=== PATIENT | male | born 1995 | race Two or more races ===

== ENCOUNTER 2025-06-20 01:53 | Emergency (ER) | payer BC, OTHER ==
[~2025-06-20] VITALS: Ht 167.6 cm; Wt 78.9 kg
--- NOTE | 2025-06-20 02:24 | ED.PDOC ---
General HPI Comments 30-YEAR-OLD MALE PRESENTS TO THE ED C/O CONSTANT, SHARP/ACHING, RIGHT ABDOMINAL PAIN FOR 2 HOURS. PATIENT HAS HAD SOME NAUSEA, STATES HE FEELS LIKE HE NEEDS TO URINATE/HAVE BM BUT CANNOT. C/O RIGHT TESTICLE PAIN. DENIES VOMITING, DIFFICULTY BREATHING, CHEST PAIN, SHORTNESS OF BREATH, DIARRHEA, FEVER, CHILLS, RECENT TRAVEL OR KNOWN ILL CONTACTS. Chief Complaint: Abdominal Pain Time Seen by MD: 02:20 Reviewed notes: Nurses Notes, Medications, Allergies Allergies: Coded Allergies: Codeine (Verified Allergy, Unknown, 06/20/25) Home Meds Active Scripts Tamsulosin Hcl (Flomax) 0.4 Mg Cap, 1 CAP PO DAILY, #30 CAP Prov:SCOTTY VAZQUEZ 06/20/25 Ibuprofen (Ibuprofen) 800 Mg Tab, 1 TAB PO TID, #30 TAB Prov:SCOTTY VAZQUEZ 06/20/25 Information Source: Patient Mode of Arrival: Ambulatory Severity: Moderate Timing: Days Duration: Since onset, Days Prehospital treatment: None Onset: Spontaneous Symptoms: Frequency Location: Abdomen associated signs and symptoms: Abdominal Pain, Frequency, Urgency Past Medical History PAST MEDICAL HISTORY: Denies Surgical History: Denies all surgeries Family History Family History: Reviewed,noncontributory to illness, No family hx of Cancer, No family hx of DM, No family hx of Heart maliah, No family hx of HTN, No family hx ofKidney maliha, No family hx of Liver maliha, No family hx of Lung maliha, No family hx of Stroke Social History Smoker: Non-Smoker Alcohol: Denies ETOH Use Drugs: Denies Drug Use Lives In: Home Constitutional: denies: chills, diaphoresis, fatigue, fever, malaise, sweats, weakness, others EENTM: denies: blurred vision, double vision, ear bleeding, ear discharge, ear drainage, ear pain, ear ringing, eye pain, eye redness, hearing loss, mouth pain, mouth swelling, nasal discharge, nose bleeding, nose congestion, nose pain, photophobia, tearing, throat pain, throat swelling, voice changes, others Respiratory: denies: cough, hemoptysis, orthopnea, SOB at rest, shortness of breath, SOB with excertion, stridor, wheezing, others Cardiovascular: denies: chest pain, dizzy spells, diaphoresis, Dyspnea on exertion, edema, irregular heart beat, left arm pain, lightheadedness, palpitations, PND, syncope, others Gastrointestinal: reports: abdominal pain, nausea; denies: abdomen distended, blood streaked bowels, constipated, diarrhea, dysphagia, difficulty swallowing, hematemesis, melena, poor appetite, poor fluid intake, rectal bleeding, rectal pain, vomiting, others Genitourinary: denies: burning, dysuria, flank pain, frequency, hematuria, incontinence, penile discharge, penile sore, pain, testicle pain, testicle swelling, urgency, others Neurological: denies: dizziness, fainting, headache, left sided numbness, left sided weakness, numbness, paresthesia, pre-existing deficit, right sided numbness, right sided weakness, seizure, speech problems, tingling, tremors, weakness, others Musculoskeletal: denies: back pain, gout, joint pain, joint swelling, muscle pain, muscle stiffness, neck pain, others Integumetry: denies: bruises, change in color, change in hair/nails, dryness, laceration, lesions, lumps, rash, wounds, others Allergic/Immunocompromised: denies: Difficulty Healing, Frequent Infections, Hives, Itching, others Hematologic/Lymphatic: denies: anemia, blood clots, easy bleeding, easy bruising, swollen glands, others Endocrine: denies: excessive hunger, excessive sweating, excessive thirst, excessive urination, flushing, intolerance to cold, intolerance to heat, unexplained weight gain, unexplained weight loss, others Psychiatric: denies: anxiety, bipolar disorder, depression, hopeless, panic disorder, schizophrenia, sleepless, suicidal, others All Other Systems: Reviewed and Negative (PER HPI ) Physical Exam General Appearance: No Apparent Distress, Normal HEENT: Normal ENT Inspection, PERRL/EOMI, Pharynx Normal, TMs Normal Neck: Full Range of Motion, Non-Tender, Normal, Normal Inspection Respiratory: Chest Non-Tender, Lungs Clear, No Accessory Muscle Use, No Respiratory Distress, Normal Breath Sounds Cardiovascular: No Edema, No JVD, No Murmur, No Gallop, Normal Peripheral Pulses, Regular Rate/Rhythm Breast Exam: Deferred Gastrointestinal: No Organomegaly, No Pulsatile Mass, Normal Bowel Sounds, RLQ, Soft, Tenderness (RIGHT LOWER ABD, NO GUARDING AND REBOUND TENDERNESS. ) Genitalia: Deferred Pelvic: Deferred Rectal: Deferred Extremities: No calf tenderness, Normal capillary refill, Normal inspection, Normal range of motion, Non-tender, No pedal edema Musculoskeletal : Apperance: Normal Neurologic: Alert, dry sander II-XII nml as Tested, No Motor Deficits, Normal Affect, Normal Mood, No Sensory Deficits Cerebellar Function: Normal Reflexes: Normal Skin: Dry, Normal Color, Warm Peripheral Pulses: 2+ carotid (R), 2+ carotid (L) Lymphatic: No Adenopathy Was a procedure done? Was a procedure done?: No Differential Diagnosis Kidney stone (Female): Musculoskeletal pain, Pyelonephritis, Renal failure, Strain, Urinary obstruction, Urolithiasis Urinary Problem (Male): Bladder Outlet, Prostatitis, Urolithiasis, UTI X-Ray, Labs, Meds, VS Vital Signs Date Time Temp Pulse Resp B/P (MAP) Pulse Ox O2 Delivery O2 Flow Rate FiO2 06/20/25 09:29 86 16 97 Room Air* 0 21 06/20/25 09:23 98.1 86 16 157/99 (118) 97 98.1 06/20/25 05:54 98.5 74 16 162/100 (120) 99 98.5 06/20/25 02:20 Room Air 06/20/25 01:53 98.3 68 18 158/96 97 98.3 Lab Test 06/20/25 05:35 06/20/25 02:37 Range/Units Urine Color Yellow Yellow Urine Clarity Turbid H Clear Urine pH 5.0 5.0-9.0 Urine Specific Hunter 1.019 1.001-1.035 Urine Protein 1+ H Negative Urine Ketones Trace Negative Urine Blood 3+ H Negative /uL Urine Nitrite Negative Negative Urine Bilirubin Negative Negative Urine Urobilinogen Normal Negative mg/dL Urine Leukocyte Esterase Negative Negative /uL Urine RBC 371 0 - 3 /hpf Urine Microscopic WBC 2 0-3 /HPF Urine Squamous Epithelial Cells Few <5 /hpf Urine Bacteria None seen None Seen /hpf Urine Hyaline Casts Few 0 - 2 /lpf Urine Mucus Few None Seen Urine Glucose Normal Normal mg/dL White Blood Count 16.2 H 4.4-10.8 10^3/uL Red Blood Count 5.21 4.5-5.90 10^6/uL Hemoglobin 16.6 13.5-17.5 g/dL Hematocrit 47.1 41.0-53.0 % Mean Corpuscular Volume 90.4 80.0-100.0 fL Mean Corpuscular Hemoglobin 31.8 28.0-32.0 pg Mean Corpuscular Hemoglobin Concent 35.2 32.0-36.0 g/dL Red Cell Distribution Width 12.9 11.8-14.3 % Platelet Count 254 140-450 10^3/uL Mean Platelet Volume 9.4 6.9-10.8 fL Neutrophils (%) (Auto) 87.5 H 37.0-80.0 % Lymphocytes (%) (Auto) 8.5 L 10.0-50.0 % Monocytes (%) (Auto) 3.7 0.0-12.0 % Eosinophils (%) (Auto) 0.1 0.0-7.0 % Basophils (%) (Auto) 0.2 0.0-2.0 % Neutrophils # (Auto) 14.2 H 1.6-8.6 10 ^3/uL Lymphocytes # (Auto) 1.4 0.4-5.4 10 ^3/uL Monocytes # (Auto) 0.6 0-1.3 10 ^3/uL Eosinophils # (Auto) 0 0-0.8 10 ^3/uL Basophils # (Auto) 0 0-0.2 10 ^3/uL Nucleated Red Blood Cells 0.0 % Sodium Level 140 136-145 mmol/L Potassium Level 3.4 L 3.5-5.1 mmol/L Chloride Level 104 98-107 mmol/L Carbon Dioxide Level 24 20-31 mmol/L Anion Gap 12 5-15 Blood Urea Nitrogen 9 9-23 mg/dL Creatinine 1.26 0.700-1.30 mg/dL Glomerular Filtration Rate Calc 78 >90 mL/min BUN/Creatinine Ratio 7.1 L 10.0-20.0 Serum Glucose 155 H 74-106 mg/dL Calcium Level 9.6 8.7-10.4 mg/dL Total Bilirubin 0.7 0.2-1.0 mg/dL Aspartate Amino Transferase (AST) 45 H 13-40 U/L Alanine Aminotransferase (ALT) 112 H 7-40 U/L Alkaline Phosphatase 86 46-116 U/L Total Protein 7.8 5.7-8.2 g/dL Albumin 5.1 H 3.2-4.8 g/dL Current Medications Medications (Trade) Dose Ordered Sig/Yasir Route Start Time Stop Time Status Last Admin Ketorolac Tromethamine (Toradol Injection) 30 mg ONCE ONCE IV 06/20/25 02:30 06/20/25 02:31 DC 06/20/25 08:53 Tamsulosin HCl (Flomax) 0.4 mg ONCE ONCE PO 06/20/25 04:15 06/20/25 04:16 DC 06/20/25 08:52 Sodium Chloride 1,000 ml @ 1,000 mls/hr Q1H ONCE IV 06/20/25 08:30 06/20/25 09:29 DC 06/20/25 08:53 PATIENT: ELMA WINNACCT: [id number]: [id number] : 1995 LOC: ER ROOM / BED: / AGE / SEX: 30 / M ADM STATUS: REG ER SERVICE 0220 ORDERING PHYSICIAN: OLIVER LANDAVERDE PROCEDURE(s): ABPL - CT AB PEL WO CON-NO ORAL OR IV REASON: right flank pain ORDER NUMBER(s): [id number], ACCESSION NUMBER(s): [id number] Exam: CT CT AB PEL WO CON-NO ORAL OR IV History: right flank pain Comparison Study: None TECHNIQUE: Multidetector CT of the abdomen was performed from lung bases to pubic symphysis. Imaging was performed without IV contrast. Axial, coronal and sagittal multiplanar reformats were obtained from the axial data set by the technologist. Radiation Dose Information: Dose-length product is 509.57 mGy*cm FINDINGS: Limited sections of the lung bases demonstrate no focal pulmonary mass. The liver, spleen, pancreas, and both adrenal glands demonstrate no acute findings. Extensive hepatic steatosis. The gallbladder is unremarkable. The stomach is unremarkable. The small bowel loops are not dilated. The appendix is normal. No colonic obstruction. 3 mm obstructive stone at the right UVJ with associated [id number] hydroureteronephrosis. Left collection system is unremarkable. The urinary bladder is not distended. No significant lymphadenopathy. No free air or free fluid. The aorta and IVC demonstrate no acute findings. Visualized osseous structures demonstrate no acute abnormality. IMPRESSION: 1. 3 mm obstructive stone at the right UVJ with associated [id number] hydroureteronephrosis. ATED BY: MAGDA CRANE MD DICTATED DATE/TIME: 06/20/25406 SIGNED BY: MAGDA CRANE MD SIGNED DATE/TIME: 06/20/25406 CC: X-Ray, Labs, Meds, VS Comment CT ABDOMEN AND PELVIS IMPRESSION: 1. 3 mm obstructive stone at the right UVJ with associated [id number] hydroureteronephrosis. PATIENT CONTINUES WITH MODERATE PAIN. NOTED OBSTRUCTIVE RENAL STONE WITH hydroureteronephrosis. WHITE COUNT [id number]. ORDERED ROCEPHIN 1 G IV PIGGYBACK AND TAMSULOSIN 0.4 MG P.O.. PLACED ORDERS FOR ADMISSION POSSIBLY TRANSFER [facility] Spoke with Dr. Ramos with [place] case [phone]. Dr. Ramos stated she will call back once patient's urine is resulted to finalize transfer. PATIENT WAS TRANSFERRED TO [facility] AT 0600, UPON WAITING UA RESULTS. EXTERNAL MEDICAL RECORDS REVIEWED: [NONE] INDEPENDENT HISTORIANS: [NONE] SOCIAL DETERMINANTS OF HEALTH: [NONE] LABS ORDERED: SEE ABOVE REVIEWED AND INTERPRETED RESULTS: NONE IMAGING ORDERED: NONE TREATMENTS ORDERED: 0.9 NORMAL SALINE 1 L, FLOMAX 0.4 IVP. AFTER TREATMENT, PT STATES HE DOES NOT HAVE PAIN AT THIS TIME. PROCEDURES PERFORMED: NONE CRITICAL CARE TIME: NONE I HAVE DISCUSSED THE PATIENT WITH THE ATTENDING PHYSICIAN, DR. SWEET, AND HE AGREES WITH THE PATIENT'S PLAN OF CARE AND DISPOSITION. PATIENTS URINALYSIS SHOWS NO INFECTION AT THIS TIME. AT 0957, PATIENT REPORTS PAIN IS A 3/10 AT THIS TIME. UPON CONSULTATION WITH DR. CHAPIN FROM [facility]. , PATIENT DOES NOT NEED TO TRANSFER TO [facility] BECAUSE PT DOES NOT HAVE PAIN AFTER TREATMENT. DR. CHAPIN WILL REFER THE PATIENT TO A UROLOGIST FOR [facility] AND WILL CALL PT IN 2 DAYS. BASED ON HISTORY OF PRESENT ILLNESS, AND PHYSICAL EXAM, PATIENT WILL BE DISCHARGED HOME. DISCUSSED PLAN FOR DISCHARGE HOME WITH RX IBUPROFEN AND FLOMAX. MEDICATION WARNINGS GIVEN. SHARED DECISION MAKING: DISCUSSED WITH PATIENT THAT THEIR WORKUP WAS NORMAL. PATIENT INSTRUCTED TO FOLLOW UP WITH PRIMARY CARE PROVIDER IN 1-2 DAYS FOR RE- EVALUATION OF SYMPTOMS. PATIENT VERBALIZES UNDERSTANDING TO RETURN TO ED FOR NEW OR WORSENING SYMPTOMS OR IF FOLLOW UP WITH PCP CANNOT BE OBTAINED. PATIENT FEELS COMFORTABLE GOING HOME AT THIS TIME. ALL QUESTIONS ADDRESSED AT TIME OF DISCHARGE. Time of 1ST Reevaluation: 02:24 Reevaluation 1ST: Unchanged Time of 2ND Reevaluation: 06:07 Reevaluation 2ND: Unchanged Time of 3RD Reevaluation: 10:44 Reevaluation 3RD: Improved Patient Education/Counseling: Diagnosis, Treatment, Prognosis, Need For Follow Up Family Education/Counseling: Diagnosis, Treatment, No Family Present Medical Screening: No EMC Exist At This Time SEPSIS Sepsis Screen Date sepsis recognized/suspect: Jun 20, 2025 Time Sepsis recognized/suspect: 015 Recent Procedure: No On Antibiotic Therapy: No Respiratory Rate >20: No Heart Rate >90: No Temp<36 C (96.8 F) or >38.3 C: No SBP <90 or MAP <65 mmHG: No New Acute Mental Status Change: No Is the patient on CPAP, BIPAP,: No Physician Orders Heplock Iv (06/20/25 ) Ct Ab Pel Wo Con-No Oral Or Iv (06/20/25 02:20) Vital Signs Date Time Temp Pulse Resp B/P (MAP) Pulse Ox O2 Delivery O2 Flow Rate FiO2 06/20/25 09:29 86 16 97 Room Air* 0 21 06/20/25 09:23 98.1 86 16 157/99 (118) 97 98.1 06/20/25 05:54 98.5 74 16 162/100 (120) 99 98.5 06/20/25 02:20 Room Air 06/20/25 01:53 98.3 68 18 158/96 97 98.3 Laboratory Tests Test 06/20/25 02:37 White Blood Count 16.2 10^3/uL (4.4-10.8) H Medications Medications Dose Ordered Sig/Yasir Route Start Time Stop Time Status Last Admin Dose Admin Ketorolac Tromethamine 30 mg ONCE ONCE IV 06/20/25 02:30 06/20/25 02:31 DC 06/20/25 08:53 Sodium Chloride 1,000 ml @ 1,000 mls/hr Q1H ONCE IV 06/20/25 08:30 06/20/25 09:29 DC 06/20/25 08:53 Tamsulosin HCl 0.4 mg ONCE ONCE PO 06/20/25 04:15 06/20/25 04:16 DC 06/20/25 08:52 Departure 1 Departure Time of Disposition: 10:44 Impression: Primary Impression: Hydronephrosis with renal calculous obstruction Additional Impression: Leukocytosis Qualified Codes: D72.829 - Elevated white blood cell count, unspecified Disposition: HOME / SELF CARE / HOMELESS Condition: Stable Additional Instructions: FOLLOW-UP WITH PCP IN 1 TO 2 DAYS. TAKE MEDICATIONS PRESCRIBED. RETURN TO ED FOR ANY NEW OR WORSENING SYMPTOMS. e-Prescriptions Tamsulosin Hcl (Flomax) 0.4 Mg Cap 1 CAP PO DAILY, #30 CAP Prov: SCOTTY VAZQUEZ 06/20/25 Ibuprofen (Ibuprofen) 800 Mg Tab 1 TAB PO TID, #30 TAB Prov: SCOTTY VAZQUEZ 06/20/25 Discharged With: Self Critical Care Note Critical Care Time?: No Stability Stability form required: No Heart Score Heart Score: Heart Score Response (Comments) Value History N/A 0 EKG N/A 0 Age N/A 0 Risk Factors N/A 0 Troponin N/A 0 Total 0 I personally scribed for SCOTTY VAZQUEZ ([email or web address]) on 06/20/25 at 10:02. Electronically submitted by Gertrude Elmore ([employer]). I personally scribed for SCOTTY VAZQUEZ ([email or web address]) on 06/20/25 at 10:05. Electronically submitted by Gertrude Elmore ([employer]). OLIVER LANDAVERDE Jun 20, 2025 02:24 SCOTTY VAZQUEZ Jun 20, 2025 10:02
[2025-06-20 03:08] LABS: Hematocrit 47.1 % (41.0-53.0); Hemoglobin 16.6 g/dL (13.5-17.5); Mean Corpuscular Hemoglobin 31.8 pg (28.0-32.0); Mean Corpuscular Volume 90.4 fL (80.0-100.0); Nucleated Red Blood Cells % 0.0 %
[2025-06-20 03:24] LABS: Alkaline Phosphatase 86 U/L (46-116); Anion Gap 12 (5-15); BUN/Creatinine Ratio 7.1 (10.0-20.0); Bilirubin, Total 0.7 mg/dL (0.2-1.0); Calcium 9.6 mg/dL (8.7-10.4); Carbon Dioxide 24 mmol/L (20-31); Chloride 104 mmol/L (98-107); Sodium 140 mmol/L (136-145); Total Protein 7.8 g/dL (5.7-8.2)
[2025-06-20 03:39] LABS: Alanine Aminotransferase 112 U/L (7-40); Albumin 5.1 g/dL (3.2-4.8); Blood Urea Nitrogen 9 mg/dL (9-23); Glucose 155 mg/dL (74-106); Potassium 3.4 mmol/L (3.5-5.1)
--- NOTE | 2025-06-20 04:09 | DVH ---
Exam: CT CT AB PEL WO CON-NO ORAL OR IV History: right flank pain Comparison Study: None TECHNIQUE: Multidetector CT of the abdomen was performed from lung bases to pubic symphysis. Imaging was performed without IV contrast. Axial, coronal and sagittal multiplanar reformats were obtained fr om the axial data set by the technologist. Radiation Dose Information: Dose-length product is 509.57 mGy*cm FINDINGS: Limited sections of the lung bases demonstrate no focal pulmonary mass. The liver, spleen, pancreas, and both adrenal glands demonstrate no acute findings. Extensive hepatic steatosis. The gallbladder is unremarkable. The stomach is unremarkable. The small bowel loops are not dilated. The appendix is normal. No colonic obstruction. 3 mm obstructive stone at the right UVJ with associated [id number] hydroureteronephrosis. Left collection system is unremarkable. The urinary bladder is not distended. No significant lymphadenopathy. No free air or free fluid. The aorta and IVC demonstrate no acute findings. Visualized osseous structures demonstrate no acute abnormality. IMPRESSION: 1. 3 mm obstructive stone at the right UVJ with associated [id number]-jh-zqkyasyx hydroureteronephrosis.
[2025-06-20] MEDS ORDERED: cefTRIAXone 1GM/50ML D5W 50 ML IV ONE (04:15)
[2025-06-20 06:34] LABS: Urine Protein, UAD 1+ (Negative)
[2025-06-20] MEDS: ONDANSETRON HCL 4 MG/2 ML VIAL IV ONE (08:50)
[2025-06-20] MEDS: TAMSULOSIN HYDROCHLORIDE 0.4 MG CAP PO ONE (08:52)
[2025-06-20] MEDS: SODIUM CHLORIDE 0.9% 1,000 ML IV ONE (08:53)
[2025-06-20] MEDS: KETOROLAC TROMETH 30 MG/ML 1ML VIAL IV ONE (08:53)
[2025-06-20 09:23] VITALS: BP 157/99; TEMP 98.1
[2025-06-20 09:29] VITALS: PULSE 86; RESP 16; O2SAT 97
[2025-06-20] MEDS ORDERED: IBUP-1456 PO (10:06)
[2025-06-20] MEDS ORDERED: TAMS-35 PO (10:06)
== END 2025-06-20 10:44 | disposition home or self-care (01) ==
LOC: ER 01:53
DX: N13.2 Hydronephrosis with renal and ureteral calculous obstruction (principal); D72.829 Elevated white blood cell count, unspecified; N50.811 Right testicular pain; Z88.5 Allergy status to narcotic agent
CPT/HCPCS: 36415; 74176; 80053; 81001; 85025; 96361; 96374; 99285; J1885; J7030